=== PATIENT | female | born 1960 | race Caucasian/White ===

== ENCOUNTER 2017-08-20 14:57 | Emergency (ER) | payer BC ==
[2017-08-20 15:01] VITALS: BP 124/84
--- NOTE | 2017-08-20 15:16 | PHYS DOC ---
Adult General HPI HPI 57-year-old female presents with right ankle pain. The patient was working with a flowerpot and it slipped out of her hand. As she dropped it hit the ground and broke and lacerated the medial aspect of her right ankle. She was able to stop bleeding, but that she should come to the emergency room in case it needed stitches. Her tetanus is also out of date. She denies any other injuries. She denies fever or chills. Her pain is well controlled. She has no other complaints. Review of Systems Review of Systems Constitutional: Denies fever or chills [] Eyes: Denies change in visual acuity, redness, or eye pain [] HENT: Denies nasal congestion or sore throat [] Respiratory: Denies cough or shortness of breath [] Cardiovascular: No additional information not addressed in HPI [] GI: Denies abdominal pain, nausea, vomiting, bloody stools or diarrhea [] : Denies dysuria or hematuria [] Musculoskeletal: Denies back pain or joint pain [] Integument: laceration of right ankle [] Neurologic: Denies headache, focal weakness or sensory changes [] Endocrine: Denies polyuria or polydipsia [] All other systems were reviewed and found to be within normal limits, except as documented in this note. Physical Exam Physical Exam Constitutional: Well developed, well nourished, no acute distress, non-toxic appearance. [] HENT: Normocephalic, atraumatic, bilateral external ears normal, oropharynx moist, no oral exudates, nose normal. [] Eyes: PERRLA, EOMI, conjunctiva normal, no discharge. [] Neck: Normal range of motion, no tenderness, supple, no stridor. [] Cardiovascular:Heart rate regular rhythm, no murmur [] Lungs & Thorax: Bilateral breath sounds clear to auscultation [] Abdomen: Bowel sounds normal, soft, no tenderness, no masses, no pulsatile masses. [] Skin:2cm curved laceration over medial malleolus of right ankle. [] Back: No tenderness, no CVA tenderness. [] Extremities: No tenderness, no cyanosis, no clubbing, ROM intact, no edema. [] Neurologic: Alert and oriented X 3, normal motor function, normal sensory function, no focal deficits noted. [] Psychologic: Affect normal, judgement normal, mood normal. [] EKG EKG [] Radiology/Procedures Radiology/Procedures [] Course & Med Decision Making Course & Med Decision Making Pertinent Labs and Imaging studies reviewed. (See chart for details) Patient needs a tetanus shot so we will give her Tdap. Wound was irrigated with saline and chlorhexidine. No foreign bodies were found. I discussed stitches versus skin glue versus dressing and the patient has elected for skin glue and a dressing. She is not concerned with the cosmetics of the cut. Laceration repair: The patient's laceration was irrigated with chlorhexidine and saline solution. Wound was explored to its base. No foreign bodies were found. I then approximated the skin margins and applied 2 layers of skin glue. There was good adhesion and hemostasis. I covered the area with a large Band- Aid. The patient tolerated the procedure well. No complications. [] Dragon Disclaimer Dragon Disclaimer This electronic medical record was generated, in whole or in part, using a voice recognition dictation system. Departure Departure: Referrals: EMILY CELESTE APRN (PCP) BROOKS VERONICA DO August 20, 2017 15:16
[2017-08-20] MEDS ORDERED: DIPHTH,PERTUSS(ACELL),TET TOX 0.5 ML DISP.SYRIN. VAX IM ONE (15:45)
== END 2017-08-20 15:46 | disposition home or self-care (01) ==
LOC: ER 14:57
DX: S91.011A Laceration without foreign body, right ankle, initial encounter (principal); W25.XXXA Contact with sharp glass, initial encounter; Y93.89 Activity, other specified; Y99.8 Other external cause status; Y92.89 Other specified places as the place of occurrence of the external cause
CPT/HCPCS: 12001; 90471; 90715; 99283-25

== ENCOUNTER → 2018-09-01 | Outpatient (CLI) | payer BC ==
--- NOTE | 2018-09-01 11:54 | RAD ---
DATE: 09/01/2018. EXAM: MAMMO JAMESON SCREENING BILATERAL. HISTORY: Routine mammographic screening. COMPARISON: 04/27/2016. This study was interpreted with the benefit of Computerized Aided Detection (CAD). FINDINGS: Breast Density: HETERO The breast parenchyma is heterogenously dense, which could reduce sensitivity of mammography. Breast parenchyma level C.. There are no suspicious masses, microcalcifications or architectural distortion. The parenchymal pattern is stable. BI-RADS CATEGORY: 1 NEGATIVE. RECOMMENDED FOLLOW-UP: 12M 12 MONTH FOLLOW-UP. PQRS compliance statement: Patient information was entered into a reminder system with a target due date 09/02/2019 for the next mammogram. Mammography is a sensitive method for finding small breast cancers, but it does not detect them all and is not a substitute for careful clinical examination. A negative mammogram does not negate a clinically suspicious finding and should not result in delay in biopsying a clinically suspicious abnormality. "Our facility is accredited by the [employer] Mammography Program."
== END | disposition home or self-care (01) ==
LOC: MAMMO 07:56
PROVIDERS: ATTEND Physician Assistant
DX: Z12.31 Encounter for screening mammogram for malignant neoplasm of breast (principal)
CPT/HCPCS: 77063; 77067

== ENCOUNTER → 2018-09-26 | Outpatient (CLI) | payer BC ==
--- NOTE | 2018-09-26 18:16 | RAD ---
Examination: KNEE BILAT 3V History: Bilateral knee pain Comparison/Correlation: None Findings: Three-view exam of the right knee and 3 view exam the left knee was performed. Mild narrowing of the lateral compartment of the right knee is present. Small right knee joint effusion is present. Mild spurring about the medial compartment of the left knee noted. Minimal left knee joint effusion. No fracture or bony destruction. Impression: Mild degenerative change. Joint effusions. Electronically signed by: Bruno Mesa MD (09/26/2018 6:14 PM) [facility]
== END | disposition home or self-care (01) ==
LOC: DXRAD 11:19
PROVIDERS: ATTEND Physician Assistant Medical
DX: M17.0 Bilateral primary osteoarthritis of knee (principal); M25.462 Effusion, left knee; M25.461 Effusion, right knee
CPT/HCPCS: 73562

== ENCOUNTER 2019-02-09 09:54 | Emergency (ER) | payer BC ==
--- NOTE | 2019-02-09 10:27 | PHYS DOC ---
Past History Past Medical History: Hypertension, Hyperthyroid Past Surgical History: Other Past Surgical History knee surgery Smoking: Non-smoker Alcohol Use: None Drug Use: None Adult General Chief Complaint Chief Complaint: Foreign object in foot HPI HPI Patient is a 58 y/o female with a history of hypertension and hypothyroid who presents to the ED with left heel pain after stepping on a needle earlier this morning. She stepped on a needle sticking out of the ground and broke it so part of the needle is now inside her foot. Denies radiation or associated symptoms. Patient reports she is only able to walk on her toes and has too much pain when walking on her heel. She says her last tetanus shot less than 5 years ago when she cut her leg on a flower pot. Severity rated at 5/10. Review of Systems Review of Systems Constitutional: Denies fever or chills Eyes: Denies redness or eye pain HENT: Denies nasal congestion or sore throat Respiratory: Denies cough or shortness of breath Cardiovascular: Denies chest pain or palpitations GI: Denies abdominal pain, nausea, or vomiting : Denies dysuria or hematuria Musculoskeletal: Denies back pain or joint pain; reports left heel pain Integument: Denies rash or skin lesions Neurologic: Denies headache, focal weakness or sensory changes Complete systems were reviewed and found to be within normal limits, except as documented in this note. Allergies Allergies Allergies Coded Allergies Type Severity Reaction Last Updated Verified No Known Drug Allergies 08/20/17 No Physical Exam Physical Exam Constitutional: Well developed, well nourished, no acute distress, non-toxic appearance HENT: Normocephalic, atraumatic Eyes: Conjunctiva normal, no discharge Neck: Normal range of motion, no tenderness, supple Cardiovascular: Heart rate normal, regular rhythm Lungs & Thorax: Bilateral breath sounds clear to auscultation, no wheezing Skin: Warm, dry, no erythema, no rash, pinpoint puncture wound on left heel Extremities: ROM intact, no edema, pain upon palpation on left heel, left PT and DP +2, CR < 2 sec Neurologic: Alert and oriented X 3, no focal deficits noted Psychologic: Affect normal, judgement normal EKG EKG [] Radiology/Procedures Radiology/Procedures PROCEDURE: CALCANEUS LEFT Examination: CALCANEUS LEFT History: Foreign body Comparison/Correlation: None Findings: The exam of the left calcaneus was performed. A linear foreign body is present longitudinally oriented within the soft tissues at the mid calcaneal level at the plantar aspect. There is a fragment of this foreign body within the plantar aspect of the mid calcaneus. The other, dominant fragment is within the soft tissues only measuring 2.2 cm. Small calcaneal spur is present. No fracture identified. Impression: Fragmented foreign body is present at the plantar aspect of mid calcaneal region. The smaller more superior fragment is within the bony cortex of the plantar mid calcaneus. Electronically signed by: Bruno Mesa MD (02/09/2019 10:36 AM) [facility] Course & Med Decision Making Course & Med Decision Making Patient presents w/ left sided heel pain after stepping on a needle. Tetanus up to date. XR with findings of retained metallic foreign bodies x 2 (large more superficial portion, and small deep portion). Exploratory incision made with success retrieval of large fragment. Copious irrigation utlized. Wound repaired with sutures and dressed with use of empiric antibiotic ointment. Prescription given for empiric antibiotics given concern for infection. Patient stable for discharge with outpatient follow-up with PCP. Discussed findings and plan with patient, who acknowledges understanding and agreement. Dragon Disclaimer Dragon Disclaimer This electronic medical record was generated, in whole or in part, using a voice recognition dictation system. Additional Procedures Progress Exploratory incision for removal of retained foreign body: Verbal consent obtained. Time out performed. Hand hygiene utilized. Wound cleaned with ChloraPrep. Anesthesia obtained via a 25-gauge hypodermic needle with (3) mL's of lidocaine 2% with epinephrine. 2.5cm incision made with 15 blade scalpel. Utilized skin hooks for explore. Soft tissue dissection performed with curved iris scissors. Successful removal of metallic needle with alligator forceps. Copious irrigation performed. Wound repaired and well approximated with 2x simple interrupted 3-0 Nylon sutures. Patient tolerated procedure well and without difficulty. Empiric antibiotic ointment applied prior to sterile dressing. Departure Departure: Impression: Primary Impression: Foreign body in foot, left Disposition: 01 HOME, SELF-CARE Condition: IMPROVED Referrals: TONEY BARRAGAN (PCP) Patient Instructions: Foreign Body-Brief, Sutured Wound Care, [id number] Additional Instructions: Do not soak your wound. You may shower. Clean wound daily with soap and water. Change dressing 2 times daily. Use over the counter antibiotic ointment with each dressing change. Please also take prescribed oral antibiotic until gone. Sutures need to be removed in 8-10 days. Present to your family doctor or local urgent care for removal. You may also present to the ED but it will be an additional visit/charge. Scripts Clindamycin Hcl (CLINDAMYCIN HCL) 300 Mg Capsule 1 CAP PO TID for infection for 5 Days, #15 CAP Prov: DEZ GARCIA DO 02/09/19 Problem Qualifiers Primary Impression: Foreign body in foot, left Encounter type: initial encounter Qualified Codes: S90.852A - Superficial foreign body, left foot, initial encounter DEZ GARCIA DO Feb 09, 2019 10:27
[2019-02-09] MEDS ORDERED: NEOMY/BACITR/POLYMYXIN OINT PACKET. TP ONE (10:30)
--- NOTE | 2019-02-09 10:39 | RAD ---
Examination: CALCANEUS LEFT History: Foreign body Comparison/Correlation: None Findings: The exam of the left calcaneus was performed. A linear foreign body is present longitudinally oriented within the soft tissues at the mid calcaneal level at the plantar aspect. There is a fragment of this foreign body within the plantar aspect of the mid calcaneus. The other, dominant fragment is within the soft tissues only measuring 2.2 cm. Small calcaneal spur is present. No fracture identified. Impression: Fragmented foreign body is present at the plantar aspect of mid calcaneal region. The smaller more superior fragment is within the bony cortex of the plantar mid calcaneus. Electronically signed by: Bruno Mesa MD (02/09/2019 10:36 AM) [facility]
[2019-02-09] MEDS ORDERED: LIDOCAINE 2%/EPI 1:100,000 20 ML VIAL. IJ ONE (11:00)
[2019-02-09] MEDS ORDERED: CLIN300C8 PO (11:20)
[2019-02-09 11:21] VITALS: BP 146/99
== END 2019-02-09 11:44 | disposition home or self-care (01) ==
LOC: ER 09:54
DX: S90.852A Superficial foreign body, left foot, initial encounter (principal); I10 Essential (primary) hypertension; E03.9 Hypothyroidism, unspecified; W22.8XXA Striking against or struck by other objects, initial encounter; Y93.89 Activity, other specified; Y92.89 Other specified places as the place of occurrence of the external cause; Y99.8 Other external cause status
CPT/HCPCS: 28192; 73650; 99284

== ENCOUNTER 2019-02-19 13:09 | Emergency (ER) | payer BC ==
[~2019-02-19] VITALS: Ht 172.7 cm; Wt 102.5 kg
[~2019-02-19 13:09] MED LIST: CLIN300C8 PO
[2019-02-19 13:30] VITALS: BP 155/87
--- NOTE | 2019-02-19 13:44 | PHYS DOC ---
Past History Past Medical History: No Pertinent History Past Surgical History: No Surgical History Smoking: Non-smoker Alcohol Use: None Drug Use: None Adult General Chief Complaint Chief Complaint: SUTURE/STAPLE REMOVAL [facility] HPI Patient is a 58-year-old female who presents for suture removal after she had stepped on a needle and required exploration for needle removal. Patient was seen here on the 15 for said procedure and was instructed to return for suture removal after 8-10 days. Patient denies any signs/symptoms of infection.[] Review of Systems Review of Systems Constitutional: Denies fever or chills [] Respiratory: Denies cough or shortness of breath [] Cardiovascular: No additional information not addressed in HPI [] Integument: Positive sutures in place on left heel[] Neurologic: Denies headache, focal weakness or sensory changes [] Allergies Allergies Allergies Coded Allergies Type Severity Reaction Last Updated Verified No Known Drug Allergies 08/20/17 No Physical Exam Physical Exam Constitutional: Well developed, well nourished, no acute distress, non-toxic appearance. [] Cardiovascular:Heart rate regular rhythm, no murmur [] Lungs & Thorax: Bilateral breath sounds clear to auscultation [] Skin: Skin of left heel demonstrates healing laceration with no signs of infection. [address] [] Current Patient Data Vital Signs Vital Signs Date Time Temp Pulse Resp B/P (MAP) Pulse Ox O2 Delivery O2 Flow Rate FiO2 02/19/19 13:30 97.9 93 20 98 Room Air EKG EKG [] Radiology/Procedures Radiology/Procedures [] Course & Med Decision Making Course & Med Decision Making Pertinent Labs and Imaging studies reviewed. (See chart for details) Sutures removed by ER nurse. Dragon Disclaimer Dragon Disclaimer This electronic medical record was generated, in whole or in part, using a voice recognition dictation system. Departure Departure: Impression: Primary Impression: Visit for suture removal Disposition: 01 HOME, SELF-CARE Condition: STABLE Referrals: TONEY BARRAGAN (PCP) Patient Instructions: Suture Removal ILYA BAHENA Jr. DO Feb 19, 2019 13:44
== END 2019-02-19 13:45 | disposition home or self-care (01) ==
LOC: ER 13:13
DX: S91.312D Laceration without foreign body, left foot, subsequent encounter (principal); X58.XXXD Exposure to other specified factors, subsequent encounter
CPT/HCPCS: 99282

== ENCOUNTER → 2019-04-05 | Outpatient (CLI) | payer BC ==
--- NOTE | 2019-04-05 13:30 | RAD ---
EXAM: Dual energy x-ray absorptiometry (DEXA). HISTORY: Postmenopausal female presents for osteoporosis screening. COMPARISON: None. TECHNIQUE: Dual energy x-ray absorptiometry of the lumbar spine and right hip was performed. Calculation of bone mineral density based on standard deviations above or below the expected young adult normal value (T-score) was completed. FINDINGS: The average bone mineral density in the 1st through 4th lumbar vertebrae is 1.209 g/cmxcm, corresponding with a T-score of 0.2. The average total bone mineral density in the right hip is 0.9 x 5 g/cmxcm, corresponding with a T-score of -0.1. IMPRESSION: Normal bone mineral density. Note: Definitions established by the World Health Organization: 1. Normal: T-score is -1.0 or above. 2. Osteopenia: T-score is between -1.0 and -2.5 . 3. Osteoporosis: T-score is -2.5 or below. Electronically signed by: Daya Flores MD (04/05/2019 1:28 PM) [place] [id number]
== END | disposition home or self-care (01) ==
LOC: DXRAD 12:53
PROVIDERS: ATTEND Physician Assistant Medical
DX: E28.39 Other primary ovarian failure (principal); Z78.0 Asymptomatic menopausal state
CPT/HCPCS: 77080

== ENCOUNTER → 2020-11-26 | Outpatient (CLI) | payer BC ==
[~2020-11-26] MED LIST changes: -CLIN300C8 PO; +CLIN300C9 PO
--- NOTE | 2020-11-28 08:38 | RAD ---
INDICATION: 60 years of age asymptomatic female patient presents for screening mammography. TECHNIQUE: Full field craniocaudal and mediolateral oblique images of both breasts were obtained usi ng digital technique with tomosynthesis and also analyzed with computer-aided detection software. COMPARISON: Prior mammographic imaging 09/01/2018 BREAST COMPOSITION: Category B: There are scattered fibroglandular densities. FINDINGS: Benign calcifications are present. The parenchymal pattern appears in the right breast stable. No lorenzo spicious right breast mass, microcalcification or architectural distortion. A well-circumscribed mass is seen in the superior, lateral left breast approximately 1 cm from the ni pple. In addition a focal asymmetry is seen in the superior, slightly medial left breast, approximate ly 5 cm from the nipple. The visualized axillae are unremarkable. IMPRESSION: Left breast focal asymmetry and mass, findings for which additional imaging is advised. A dditional imaging to include spot compression views as well as ultrasound. RECOMMENDATION: The patient will be contacted to return for additional imaging and a supplemental rep ort will follow. BIRADS 0: INCOMPLETE - NEED ADDITIONAL IMAGING EVALUATION AND/OR PRIOR MAMMOGRAMS FOR COMPARISON. This study was interpreted with the benefit of Computerized Aided Detection (CAD). Patient information is entered into the reminder system with a target due date for the next screening mammogram. Mammography is the most sensitive method for finding small breast cancers, but it does not detect the m all and is not a substitute for careful clinical examination. A negative mammogram does not negate a clinically suspicious finding and should not result in delay in biopsying a clinically suspicious a bnormality. "Our facility is accredited by the [employer] Mammography Program." Electronically signed by: Andriy Wood MD (11/28/2020 8:35 AM) [id number]
== END ==
LOC: MAMMO 14:42
PROVIDERS: ATTEND Physician Assistant
DX: Z12.31 Encounter for screening mammogram for malignant neoplasm of breast (principal); R92.1 Mammographic calcification found on diagnostic imaging of breast; N63.20 Unspecified lump in the left breast, unspecified quadrant
CPT/HCPCS: 77063; 77067

== ENCOUNTER → 2020-12-15 | Outpatient (CLI) | payer BC ==
--- NOTE | 2020-12-15 16:42 | RAD ---
US BREAST LT, MG DIAGNOSTICUNILAT MAMMO 12/15/2020 1:51 PM INDICATION: Asymptomatic screening mammogram. COMPARISON: 11/26/2020, 09/01/2018, 04/09/2016 TECHNIQUE: Spot compression CC and MLO views of the left breast were obtained. Targeted ultrasound of left breast was obtained. FINDINGS: There is a circumscribed, lobulated high density mass identified within the upper outer left breast a t anterior depth measuring 1.7 cm. Targeted sonographic evaluation was performed. In the retroareolar region, there is a 1.8 x 1.0 x 1.4 cm isoechoic to hypoechoic mass which is partly obscured and othe rwise well marginated. There is parallel orientation without significant posterior characteristics. D ifferential consideration would include a papilloma or fibroadenoma, although malignancy remains a di fferential consideration. Findings are therefore suspicious and warrant a core needle biopsy. Faraz peña results were discussed with Sharon at the office of Aaron Layton at T10 p.m. on 12/15/2020. IMPRESSION: Suspicious mass in the retroareolar left breast measuring 1.8 x 1.0 x 1.4 cm. Ultrasound-guided core needle biopsy is recommended. BI-RADS category: 4; Suspicious Recommendations: Tissue sampling is recommended. Electronically signed by: Ashley Mcneill MD (12/15/2020 4:39 PM) [id number]
== END ==
LOC: MAMMO 12:51
PROVIDERS: ATTEND Physician Assistant
DX: N63.23 Unspecified lump in the left breast, lower outer quadrant (principal); R92.2 Inconclusive mammogram
CPT/HCPCS: 76641; 77065

== ENCOUNTER 2021-04-05 19:24 | Inpatient (IN) | payer BC ==
[~2021-04-05] VITALS: Ht 172.7 cm; Wt 105.2 kg
[~2021-04-05 19:24] MED LIST changes: +CLIN-95 PO; -CLIN300C9 PO
--- NOTE | 2021-04-05 19:43 | PHYS DOC ---
Past History Past Medical History: No Pertinent History Past Surgical History: No Surgical History Smoking: Non-smoker Alcohol Use: None Drug Use: None Adult General Chief Complaint Chief Complaint: FATIGUE HPI HPI Patient is a 60-year-old female, COVID-positive who presents with shortness of breath for the last couple of days. States she has some body aches, and fatigue as well as chills and sweats. States she tested positive on Tuesday. Denies any recent travels, traumas, chest pain, abdominal pain, nausea, vomiting, diarrhea. States he has been eating and drinking normally. States he is making urine and stool normally for her states she is not vaccinated Review of Systems Review of Systems Review of systems otherwise unremarkable except noted in HPI Allergies Allergies Allergies Coded Allergies Type Severity Reaction Last Updated Verified No Known Drug Allergies 08/20/17 No Physical Exam Physical Exam Constitutional: Well developed, well nourished, no acute distress, non-toxic appearance. [] HENT: Normocephalic, atraumatic, bilateral external ears normal, oropharynx moist, no oral exudates, nose normal. [] Eyes: conjunctiva normal, no discharge. [] Neck: Normal range of motion, no tenderness, supple, no stridor. [] Cardiovascular:Heart rate regular rhythm, no murmur [] Lungs & Thorax: Tachypnea, increased work of breathing, hypoxia on room air, no wheezing, bilateral rhonchi Abdomen: soft, no tenderness, no masses, no pulsatile masses. [] Skin: Warm, dry, no erythema, no rash. [] Extremities: No tenderness, no cyanosis, no clubbing, ROM intact, no edema. [] Neurologic: Alert and oriented X 3, normal motor function, normal sensory function, no focal deficits noted. [] Psychologic: Affect normal, judgement normal, mood normal. [] Current Patient Data Vital Signs Vital Signs Date Time Temp Pulse Resp B/P (MAP) Pulse Ox O2 Delivery O2 Flow Rate FiO2 04/05/21 19:31 97.6 112 24 127/70 (89) 92 Room Air EKG EKG [] Radiology/Procedures Radiology/Procedures [] Heart Score C/O Chest Pain: No Risk Factors: Risk Factors: DM, Current or recent (<one month) smoker, HTN, HLP, family history of CAD, obesity. Risk Scores: Risk Factors: DM, Current or recent (<one month) smoker, HTN, HLP, family history of CAD, obesity. Course & Med Decision Making Course & Med Decision Making Patient is a 60-year-old female COVID-positive who presents with shortness of breath Vital signs are notable for tachycardia and tachypnea. At rest as saturations around 93 to 94% but if walked will drop down into the 80s on nasal cannula. Placed on nasal cannula. Laboratory analysis not concerning. Imaging notable for consolidation bilaterally. Started on antibiotics. Rest of patient's care and disposition handed off to the ED Dragon Disclaimer Dragon Disclaimer This electronic medical record was generated, in whole or in part, using a voice recognition dictation system. Departure Departure: Impression: Primary Impression: COVID Additional Impression: Pneumonia Condition: IMPROVED Referrals: TONEY BARRAGAN (PCP) Problem Qualifiers MARIBEL MENA MD Apr 05, 2021 19:43
[2021-04-05] MEDS ORDERED: IPRATRPIUM/ALBUTEROL 0.5/2.5MG 3 ML NEBU. NEB ONE (19:45)
[2021-04-05] MEDS ORDERED: DEXAMETHASONE 4 MG TABLET PO ONE (19:45)
[2021-04-05] MEDS ORDERED: IV RINGERS SOLUTION,LACTATED 1,000 ML IV ONE (20:00)
[2021-04-05] MEDS ORDERED: levoFLOXacin 500 MG TABLET PO ONE (20:00)
[2021-04-05 20:22] LABS: BASO % 0 % (0-3); EOS % 0 % (0-3); HEMOGLOBIN 13.5 g/dL (12.0-15.5); LYMPH # 0.8 x10^3/uL (1.0-4.8); LYMPH % 10 % (24-48); MEAN CORPUSCULAR HEMOGLOBIN 30 pg (25-35); MEAN CORPUSCULAR HGB CONC 35 g/dL (31-37); MEAN CORPUSCULAR VOLUME 85 fL (79-100); MONO # 0.4 x10^3/uL (0.0-1.1); MONO % 5 % (0-9); NEUT # 6.6 x10^3uL (1.8-7.7); NEUT % 85 % (31-73); PLATELET COUNT 236 x10^3/uL (140-400); RED BLOOD COUNT 4.57 x10^6/uL (3.50-5.40); RED CELL DISTRIBUTION WIDTH 13.4 % (11.5-14.5); WHITE BLOOD COUNT 7.8 x10^3/uL (4.0-11.0)
[2021-04-05] MEDS: guaiFENesin/CODEINE 100mg/10mg 5 ML LIQUID PO PRN (20:25)
[2021-04-05 20:32] LABS: CALCIUM 8.1 mg/dL (8.5-10.1); CREATININE 1.5 mg/dL (0.6-1.0); GFR 35.7; POTASSIUM 3.9 mmol/L (3.5-5.1)
[2021-04-05 20:34] LABS: C REACTIVE PROTEIN 103.7 mg/L (0-3.3)
--- NOTE | 2021-04-05 20:49 | EKG ---
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
[2021-04-05] MEDS ORDERED: ENOXAPARIN 40 MG/0.4 ML SYRINGE. SQ ONE (21:00)
[2021-04-05 21:17] LABS: INFLUENZA A PATIENT NEGATIVE (NEGATIVE); INFLUENZA B PATIENT NEGATIVE (NEGATIVE)
--- NOTE | 2021-04-05 21:44 | RAD ---
XR CHEST 1V CLINICAL INDICATIONS: Reason: short of breath, cough, covid + 03/23/ / Spl. Instructions: / Histor y: COMPARISON: May 17, 2011. Findings: Bilateral lung infiltrates are seen more consolidative and prominent on the left side. No p leural effusion or pneumothorax is evident. The heart size, pulmonary vasculature, mediastinum and monty th phil are unremarkable. IMPRESSION: Bilateral lung infiltrates. Electronically signed by: Sinan Solano MD (04/05/2021 9:41 PM) [id number]
[2021-04-05] MEDS ORDERED: MORPHINE SULFATE 2 MG/ML DISP.SYRIN. IV ONE (21:45)
[2021-04-06] MEDS ORDERED: IV RINGERS SOLUTION,LACTATED 1,000 ML IV ONE (03:45)
--- NOTE | 2021-04-06 12:19 | HP ---
DATE OF SERVICE: 04/06/2021 ADMIT DATE: 04/05/2021 ATTENDING PHYSICIAN: Dr. Holguin. CHIEF COMPLAINT: Shortness of breath. HISTORY OF PRESENT ILLNESS: The patient is a 60-year-old female admitted through the ED with increasing shortness of breath, cough and congestion. She was significantly hypoxemic. She had been in the ED for over 24 hours. The first night she was there, she needed a BiPAP to help with oxygenation. She is a nonsmoker. She tested positive for coronavirus 6 days ago. She has not been vaccinated. She is therefore admitted then with pneumonia. Infiltrate on x-ray was seen with the left greater than the right. This is not her typical viral pneumonia, could be bacterial. She is going to be recovered for both. PAST MEDICAL HISTORY: Significant for hypothyroidism, on replacement; essential hypertension; postmenopausal state. She also has major depression and anxiety. PAST SURGICAL HISTORY: Previous rotator cuff repair. ALLERGIES: She has no recorded allergies. FAMILY HISTORY: Her mom at age 72, father at age 66. One brother and 3 sisters are healthy. She has , with 3 sons that are grown. All siblings are living, 3 with adult-onset diabetes. SOCIAL HISTORY: She is a nonsmoker, nondrinker. She has not had vaccination. She drinks soda. REVIEW OF SYSTEMS: Significant for generalized weakness, some arthritis. No fevers or chills. Dry, nonproductive cough. All other systems reviewed and turned to be negative. PHYSICAL EXAMINATION: GENERAL: When I saw her, this is a pleasant, middle-aged female. VITAL SIGNS: Initial vital signs showed a blood pressure of 140/85, pulse of 71 and regular. She was afebrile, oxygen saturation 95% on 5 liters by nasal cannula. HEENT: Head is without trauma. Pupils are reactive. Sclerae nonicteric. Oropharynx clear. NECK: Supple, no bruits. LUNGS: Coarse rhonchi bilaterally, more prominent on the left base. CARDIOVASCULAR: Showed regular heart tones. No gallops. ABDOMEN: Soft, obese, protuberant. No organomegaly. Bowel sounds are normoactive. EXTREMITIES: Show no cyanosis or edema. NEUROLOGIC: Focally intact. SKIN: Warm and dry. IMAGING: Chest x-ray, as noted bilateral infiltrates consistent with community-acquired pneumonia, bacterial pneumonia cannot be ruled out. PERTINENT LABORATORY STUDIES: Admission hemoglobin was 11.5 grams, white count 7800. Sodium 131, potassium 3.9 mEq, creatinine is 1.5 mg/dL. Nonfasting blood sugar 146. ASSESSMENT: 1. A 60-year-old female with community-acquired pneumonia. Whether this is COVID in an unvaccinated patient or bacteria remains to be seen. 2. Essential hypertension. 3. Hypothyroidism, on replacement. 4. Underlying depression with anxiety. 5. Degenerative arthritis. PLAN: 1. Admit to the inpatient unit. 2. Empiric Solu-Medrol has been started. 3. I will continue to cover her with intravenous antibiotics. 4. Wean down supplemental oxygen. 5. Diet as tolerated. ANDREZ DR: Sara TID: [id number] CC: JUAN FRANCISCO FERNANDEZ
[2021-04-06] MEDS ORDERED: ONDANSETRON PF 4 MG/2 ML VIAL. IVP PRN (12:30)
[2021-04-06] MEDS ORDERED: ACETAMINOPHEN 325 MG TABLET PO PRN (12:30)
[2021-04-06 15:20] VITALS: BP 153/87
[2021-04-06] MEDS ORDERED: LEVO112T4 PO (15:49)
[2021-04-06] MEDS ORDERED: TRAZ-125 PO (15:49)
[2021-04-06] MEDS ORDERED: LOSA50TA86 PO (15:49)
[2021-04-06] MEDS ORDERED: ASPI-889 PO (15:49)
[2021-04-06] MEDS ORDERED: CITA10TA5 PO (15:49)
[2021-04-06] MEDS ORDERED: VALA10008 PO (15:49)
[2021-04-06] MEDS ORDERED: AMLO-187 PO (15:51)
[2021-04-06] MEDS: AZITHROMYCIN 500 MG in IV NORMAL SALINE 250ML 250 ML IV SCH (16:15)
[2021-04-06] MEDS ORDERED: ACETAMINOPHEN 500 MG TABLET PO PRN (16:15)
[2021-04-06] MEDS: ENOXAPARIN 40 MG/0.4 ML SYRINGE. SQ SCH (16:17)
[2021-04-06 19:30] VITALS: BP 145/78
[2021-04-06] MEDS: methylPREDNISolone SOD SUCC PF 40 MG/ML VIAL. IV SCH (20:16)
[2021-04-06] MEDS: FAMOTIDINE 20 MG TABLET PO SCH (20:16)
[2021-04-06] MEDS: traZODone 100 MG TABLET. PO SCH (20:16)
[2021-04-06] MEDS: guaiFENesin/CODEINE 100mg/10mg 5 ML LIQUID PO PRN (20:16)
[2021-04-06 23:17] VITALS: BP 121/77
[2021-04-07] MEDS: guaiFENesin/CODEINE 100mg/10mg 5 ML LIQUID PO PRN ×2 (04:13→20:21)
[2021-04-07] MEDS: LEVOTHYROXINE 112 MCG TABLET PO SCH (05:52)
[2021-04-07 07:01] VITALS: BP 133/82
[2021-04-07] MEDS: methylPREDNISolone SOD SUCC PF 40 MG/ML VIAL. IV SCH ×2 (08:03→20:22)
[2021-04-07] MEDS: ASCORBIC ACID 1,000 MG TABLET PO SCH (08:04)
[2021-04-07] MEDS: FAMOTIDINE 20 MG TABLET PO SCH ×2 (08:04→20:21)
[2021-04-07] MEDS: CITALOPRAM 10 MG TABLET. PO SCH (08:04)
[2021-04-07] MEDS: ZINC SULFATE 220 MG CAPSULE. PO SCH (08:04)
[2021-04-07] MEDS: LOSARTAN 50 MG TABLET. PO SCH (08:04)
[2021-04-07] MEDS: valACYclovir 500 MG TABLET. PO SCH (08:05)
[2021-04-07] MEDS: ACETAMINOPHEN 325 MG TABLET PO PRN ×2 (08:52→20:21)
--- NOTE | 2021-04-07 09:02 | PN ---
DATE: 04/07/2021 ATTENDING PHYSICIAN: Dr. Holguin. SUBJECTIVE: Mild headache. She denied any dyspnea or cough. OBJECTIVE FINDINGS: VITAL SIGNS: Blood pressure this morning is 133/82 mmHg. She is afebrile. Oxygen saturations 91% on 5 liters. HEENT: Head is without trauma. Pupils are reactive. Sclerae nonicteric. Oropharynx is clear. NECK: Supple. No bruits. LUNGS: Good breath sounds. Minimal rhonchi at bases. CARDIOVASCULAR: Showed regular heart tones. No gallops. ABDOMEN: Soft. EXTREMITIES: Without edema. NEUROLOGIC FINDING: Focally intact. SKIN: Warm and dry. ASSESSMENT: 1. A 60-year-old female with COVID-19 pneumonia. She has not been vaccinated. 2. Acute hypoxemic respiratory failure. 3. Essential hypertension. 4. Hypothyroidism, on replacement. 5. Underlying depression with anxiety. 6. History of degenerative arthritis. PLAN: 1. Continue empiric Solu-Medrol. 2. Continue antibiotics. 3. Wean down supplemental oxygen. 4. Diet as tolerated. If we can get her down to a low level of oxygen, we can arrange for home oxygen at discharge. KT DR: DORY/manish TID: [id number]
[2021-04-07 10:49] VITALS: BP 127/76
[2021-04-07 15:52] VITALS: BP 137/78
[2021-04-07] MEDS: ENOXAPARIN 40 MG/0.4 ML SYRINGE. SQ SCH (16:07)
[2021-04-07] MEDS: AZITHROMYCIN 500 MG in IV NORMAL SALINE 250ML 250 ML IV SCH (16:08)
[2021-04-07 19:00] VITALS: BP 131/71
[2021-04-07] MEDS: traZODone 100 MG TABLET. PO SCH (20:22)
[2021-04-07] MEDS: LACTOBACILLUS RHAMNOSUS GG 1 CAPSULE. PO SCH (20:22)
[2021-04-07 23:00] VITALS: BP 116/67
[2021-04-08 05:00] VITALS: BP 125/74
[2021-04-08] MEDS: LEVOTHYROXINE 112 MCG TABLET PO SCH (05:45)
[2021-04-08] MEDS: methylPREDNISolone SOD SUCC PF 40 MG/ML VIAL. IV SCH ×2 (08:29→20:40)
[2021-04-08] MEDS: LOSARTAN 50 MG TABLET. PO SCH (08:29)
[2021-04-08] MEDS: LACTOBACILLUS RHAMNOSUS GG 1 CAPSULE. PO SCH ×2 (08:29→20:42)
[2021-04-08] MEDS: ASCORBIC ACID 1,000 MG TABLET PO SCH (08:29)
[2021-04-08] MEDS: valACYclovir 500 MG TABLET. PO SCH (08:30)
[2021-04-08] MEDS: CITALOPRAM 10 MG TABLET. PO SCH (08:30)
[2021-04-08] MEDS: FAMOTIDINE 20 MG TABLET PO SCH ×2 (08:30→20:41)
[2021-04-08] MEDS: ZINC SULFATE 220 MG CAPSULE. PO SCH (08:30)
[2021-04-08 10:31] VITALS: BP 129/72
[2021-04-08 10:35] LABS: BASO % 0 % (0-3); EOS % 0 % (0-3); HEMATOCRIT 38.4 % (36.0-47.0); HEMOGLOBIN 13.2 g/dL (12.0-15.5); LYMPH # 0.8 x10^3/uL (1.0-4.8); LYMPH % 7 % (24-48); MEAN CORPUSCULAR HEMOGLOBIN 29 pg (25-35); MEAN CORPUSCULAR HGB CONC 35 g/dL (31-37); MEAN CORPUSCULAR VOLUME 85 fL (79-100); MONO # 0.9 x10^3/uL (0.0-1.1); MONO % 8 % (0-9); NEUT # 8.6 x10^3uL (1.8-7.7); NEUT % 84 % (31-73); PLATELET COUNT 310 x10^3/uL (140-400); RED CELL DISTRIBUTION WIDTH 13.5 % (11.5-14.5); WHITE BLOOD COUNT 10.2 x10^3/uL (4.0-11.0)
[2021-04-08 10:38] LABS: ALBUMIN 2.9 g/dL (3.4-5.0); ALBUMIN/GLOBULIN RATIO 0.7 (1.0-1.7)
[2021-04-08 11:38] LABS: CALCIUM 8.1 mg/dL (8.5-10.1); CREATININE 1.1 mg/dL (0.6-1.0); POTASSIUM 3.8 mmol/L (3.5-5.1); TOTAL BILIRUBIN 0.5 mg/dL (0.2-1.0)
[2021-04-08 14:43] VITALS: BP 124/67
[2021-04-08] MEDS: ENOXAPARIN 40 MG/0.4 ML SYRINGE. SQ SCH (16:03)
[2021-04-08] MEDS ORDERED: AZITHROMYCIN 250 MG TABLET. PO SCH (17:00)
[2021-04-08 19:00] VITALS: BP 148/79
[2021-04-08] MEDS: traZODone 100 MG TABLET. PO SCH (20:41)
[2021-04-08] MEDS: guaiFENesin/CODEINE 100mg/10mg 5 ML LIQUID PO PRN (20:42)
[2021-04-08] MEDS: ACETAMINOPHEN 325 MG TABLET PO PRN (20:42)
[2021-04-08 23:00] VITALS: BP 128/80
--- NOTE | 2021-04-08 23:41 | PN ---
DATE: 04/08/2021 SUBJECTIVE: The patient is resting, slightly propped up in bed, in no apparent respiratory distress. On questioning her, she stated that she is feeling generally much improved. She still continued to have cough with scanty whitish sputum. Denied any chest pain. Denied any chills, rigors or fever. She is on 3 liters of oxygen, maintaining her oxygen saturation around 91-92%. PHYSICAL EXAMINATION: GENERAL: When I examined her, she looked well. No pallor, jaundice, cyanosis. No lymphadenopathy. No thyromegaly. No jugular venous distention. No limb edema. VITAL SIGNS: Her heart rate was 72, blood pressure was 124/62, temperature was 97.3, respiratory rate was 18 and oxygen saturation was 92% on 3 liters of oxygen. HEAD, EYES, EARS, NOSE, AND THROAT: Showed she is normocephalic, atraumatic. NECK: Supple. HEART: Showed normal first and second heart sounds. No gallop, rub or murmur. CHEST: Showed central trachea, equal bilateral chest expansion, air entry, vesicular breath sounds with bilateral basal crepitation. I could not appreciate any rhonchi. ABDOMEN: Distended, soft, nontender. NEUROLOGIC: She was grossly intact. Her intake over the last 24 hours and output are incompletely recorded. LABORATORY DATA: This morning showed a white cell count of 10,000, hemoglobin 13, hematocrit 38, MCV 85, and a platelet count of 310,000. Her chemistry showed a serum sodium 133, potassium 3.8, chloride 96, bicarbonate 26, anion gap of 11, BUN 17, creatinine 1.1. Estimated GFR was 51 mL per minute. Her glucose 167, calcium was 8.1. Total bilirubin, AST, ALT, alkaline phosphatase were normal. Total protein 7, albumin was 2.9. Her coronavirus by PCR was positive; however, her influenza A and B were negative. Her chest x-ray showed bilateral lung infiltrates seen with more consolidative and prominent on the left side. No pleural effusion or pneumothorax evident. The heart size, pulmonary vasculature, mediastinum and both phil are unremarkable. ASSESSMENT: 1. In summary, this is a 60-year-old female patient, who was unvaccinated for coronavirus admitted with a coronavirus COVID-19 pneumonia. 2. Acute hypoxic respiratory failure. 3. Hypertension. 4. Hypothyroidism. 5. Depression with anxiety. 6. Degenerative osteoarthritis. PLAN: Continue with antibiotic. Continue with Solu-Medrol. We will do a 6-minute walk tomorrow morning and repeat her lab works also and hopefully discharge her home tomorrow. TIERRA DR: Ansley TID: [id number]
[2021-04-09 05:00] VITALS: BP 120/70
[2021-04-09] MEDS: LEVOTHYROXINE 112 MCG TABLET PO SCH (05:38)
[2021-04-09 06:54] LABS: BASO % 0 % (0-3); EOS % 0 % (0-3); HEMATOCRIT 38.5 % (36.0-47.0); HEMOGLOBIN 13.1 g/dL (12.0-15.5); LYMPH # 1.1 x10^3/uL (1.0-4.8); LYMPH % 12 % (24-48); MEAN CORPUSCULAR HEMOGLOBIN 29 pg (25-35); MEAN CORPUSCULAR HGB CONC 34 g/dL (31-37); MEAN CORPUSCULAR VOLUME 86 fL (79-100); MONO # 0.8 x10^3/uL (0.0-1.1); MONO % 9 % (0-9); NEUT # 7.5 x10^3uL (1.8-7.7); NEUT % 80 % (31-73); PLATELET COUNT 325 x10^3/uL (140-400); RED BLOOD COUNT 4.47 x10^6/uL (3.50-5.40); RED CELL DISTRIBUTION WIDTH 13.7 % (11.5-14.5); WHITE BLOOD COUNT 9.4 x10^3/uL (4.0-11.0)
[2021-04-09 07:06] LABS: ALBUMIN 2.8 g/dL (3.4-5.0); ALBUMIN/GLOBULIN RATIO 0.7 (1.0-1.7); CALCIUM 8.3 mg/dL (8.5-10.1); CREATININE 0.9 mg/dL (0.6-1.0); GFR 64.3; TOTAL BILIRUBIN 0.4 mg/dL (0.2-1.0); TOTAL PROTEIN 6.9 g/dL (6.4-8.2)
[2021-04-09] MEDS: methylPREDNISolone SOD SUCC PF 40 MG/ML VIAL. IV SCH (08:53)
[2021-04-09 08:54] VITALS: BP 120/70
[2021-04-09] MEDS: ASCORBIC ACID 1,000 MG TABLET PO SCH (08:54)
[2021-04-09] MEDS: ZINC SULFATE 220 MG CAPSULE. PO SCH (08:54)
[2021-04-09] MEDS: LACTOBACILLUS RHAMNOSUS GG 1 CAPSULE. PO SCH (08:54)
[2021-04-09] MEDS: valACYclovir 500 MG TABLET. PO SCH (08:54)
[2021-04-09] MEDS: CITALOPRAM 10 MG TABLET. PO SCH (08:54)
[2021-04-09] MEDS: FAMOTIDINE 20 MG TABLET PO SCH (08:54)
[2021-04-09] MEDS: LOSARTAN 50 MG TABLET. PO SCH (08:54)
[2021-04-09] MEDS ORDERED: ASCO500C9 PO (11:28)
[2021-04-09] MEDS ORDERED: AZIT250T PO (11:28)
[2021-04-09] MEDS ORDERED: CEFD300C PO (11:28)
[2021-04-09] MEDS ORDERED: PRED20TA PO (11:28)
[2021-04-09 14:13] LABS: % ATYL 1 % (0-0); % BANDS 6 % (0-9); % LYMPHS 14 % (24-48); % MONOS 8 % (0-10); % SEGS 71 % (35-66)
[2021-04-09 14:15] LABS: PLT ESTIMATE ADEQUATE (ADEQUATE)
== END 2021-04-09 12:34 | disposition home or self-care (01) | DRG 177 ==
LOC: ER 19:24 → ER HOLD 04-06 12:21 → 1 SOUTH 04-06 14:13
PROVIDERS: ADMIT Hospitalist; ATTEND Hospitalist
PROC: 5A09357 Assistance with Respiratory Ventilation, Less than 24 Consecutive Hours, Continuous Positive Airway Pressure (ICD-10-PCS; principal; 2021-04-06)
DX: U07.1 COVID-19 (principal); J12.82 Pneumonia due to coronavirus disease 2019; J96.01 Acute respiratory failure with hypoxia; E03.9 Hypothyroidism, unspecified; F41.8 Other specified anxiety disorders; I10 Essential (primary) hypertension; M19.90 Unspecified osteoarthritis, unspecified site; Z83.3 Family history of diabetes mellitus; F32.9 Major depressive disorder, single episode, unspecified; F41.9 Anxiety disorder, unspecified; Z28.3 Underimmunization status
CPT/HCPCS: 36415; 71045; 80048; 80053; 82803; 82947; 84484; 85007; 85025; 86140; 93005; 94618; 94640; 94660; 96361; 96372; 96374; 96375; J0456; J0696; J1650; J2270; J2920; J3010; J7050; J7120; J8540; U0003; 99285-25